=== PATIENT | male | born 1975 | race Caucasian/White ===

== ENCOUNTER 2019-12-04 11:16 | Emergency (ER) | payer BC, OTHER ==
[~2019-12-04] VITALS: Ht 165.1 cm; Wt 77.1 kg
[2019-12-04 11:40] LABS: BASOPHILS % (AUTO) 0 % (0-10); EOSINOPHILS # (AUTO) 0.2 10^3/uL (0.0-0.3); EOSINOPHILS % (AUTO) 3 % (0-10); HEMATOCRIT 45 % (40-54); HEMOGLOBIN 15.9 G/DL (13.3-17.7); LYMPHOCYTES # (AUTO) 1.7 X 10^3 (1.0-4.0); LYMPHOCYTES % (AUTO) 34 % (12-44); MEAN CORPUSCULAR HEMOGLOBIN 30 PG (25-34); MEAN CORPUSCULAR HGB CONC 35 G/DL (32-36); MEAN CORPUSCULAR VOLUME 85 FL (80-99); MONOCYTES # (AUTO) 0.5 X 10^3 (0.0-1.0); MONOCYTES % (AUTO) 9 % (0-12); NEUTROPHILS # (AUTO) 2.8 X 10^3 (1.8-7.8); NEUTROPHILS % (AUTO) 54 % (42-75); PLATELET COUNT 263 10^3/uL (130-400); RED CELL DISTRIBUTION WIDTH 13.4 % (10.0-14.5); WHITE BLOOD COUNT 5.2 10^3/uL (4.3-11.0)
[2019-12-04] MEDS ORDERED: ASPIRIN 81 MG CHEW (CHILDREN'S ASA) PO ONE (11:45)
--- NOTE | 2019-12-04 11:56 | Diagnostic Imaging Report ---
INDICATION: Chest pain COMPARISON: None FINDINGS: Single frontal view of the chest demonstrates normal heart size and pulmonary vascularity. The lungs are well aerated and clear. No large pleural effusion or pneumothorax is seen. The visualized osseous structures show no acute abnormalities. IMPRESSION: 1. No acute cardiopulmonary process. Dictated by: Dictated on workstation # [id number]
[2019-12-04 12:02] LABS: PROTHROMBIN TIME PATIENT 13.6 SEC (12.2-14.7)
--- NOTE | 2019-12-04 12:08 | ED Chest Pain ---
General Chief Complaint: Chest Pain Stated Complaint: CHEST PAIN Nursing Triage Note: pt reports chest pain that started 15 days ago, went to [facility] for this with no solution. Pt states pain travels from chest to back of lungs. Pain started to get worse last night with a tingling sensation. Pt works at [employer], pain is worse when he worsk and drinks etoh. Nursing Sepsis Screen: No Definite Risk Source: patient Exam Limitations: language barrier (personnel security specialist line used medication) History of Present Illness Date Seen by Provider: Dec 04, 2019 Time Seen by Provider: 11:10 Initial Comments 44-year-old male who presents to emergency room with complaints of continued c hest pain that started 15 days ago. He reports being seen and evaluated at [facility] with no solution or improvement of symptoms. He reports that the pain travels from his chest into the back of his lungs. Pain is worse with deep breathing. Patient reports for the last 2 days the pain has become worse with tingling sensations throughout his chest wall. He is an employee of [employer] and has been screening for COVID several times with negative results. The patient reports that the pain is worse when he is working or when he drinks alcohol. He denies any shortness of breath, nausea, vomiting, dizziness, or any other COVID related symptoms. ASA po LANDS RESOURCE MANAGER: No NTG SL LANDS RESOURCE MANAGER: No Associated Symptoms: back pain Allergies and Home Medications Allergies Coded Allergies: No Known Drug Allergies (Unverified , 12/04/19) Patient Home Medication List Home Medication List Reviewed: Yes Review of Systems Review of Systems Constitutional: see HPI; No chills, No fever Cardiovascular: See HPI, Chest Pain Musculoskeletal: see HPI, back pain All Other Systems Reviewed Negative Unless Noted: Yes Past Kdcpduh-Jtfhat-Kypxfl Hx Past Med/Social Hx: Reviewed Nursing Past Med/Soc Hx Patient Social History Alcohol Use: Occasionally Uses Recreational Drug Use: No Smoking Status: Never a Smoker Recent Foreign Travel: No Contact w/Someone Who Travel: No Recent Infectious Disease Expo: No Recent Hopitalizations: No Seasonal Allergies Seasonal Allergies: No Past Medical History Surgeries: No Respiratory: No Cardiac: No Neurological: No Genitourinary: No Gastrointestinal: No Musculoskeletal: No Endocrine: No HEENT: No Cancer: No Psychosocial: No Integumentary: No Blood Disorders: No Family Medical History Reviewed Nursing Family Hx Physical Exam Vital Signs Vital Signs - First Documented 12/04/19 11:20 Temp 36.7 Pulse 78 Resp 14 B/P (MAP) 143/84 (103) O2 Delivery Room Air Capillary Refill : Less Than 3 Seconds Height, Weight, BMI Height: '" Weight: lbs. oz. kg; 28.00 BMI Method: General Appearance: No Apparent Distress, WD/WN Respiratory: Chest Non Tender, Lungs Clear, Normal Breath Sounds, No Accessory Muscle Use, No Respiratory Distress Cardiovascular: Regular Rate, Rhythm, No Edema, No Gallop, No JVD, No Murmur, Normal Peripheral Pulses Extremity: Normal Capillary Refill, No Calf Tenderness, No Pedal Edema Neurologic/Psychiatric: Alert, Oriented x3, Normal Mood/Affect Skin: Normal Color, Warm/Dry Progress/Results/Core Measures Results/Orders Lab Results Laboratory Tests Test 12/04/19 11:34 12/04/19 11:35 12/04/19 13:36 Range/Units White Blood Count 5.2 4.3-11.0 10^3/uL Red Blood Count 5.31 4.35-5.85 10^6/uL Hemoglobin 15.9 13.3-17.7 G/DL Hematocrit 45 40-54 % Mean Corpuscular Volume 85 80-99 FL Mean Corpuscular Hemoglobin 30 25-34 PG Mean Corpuscular Hemoglobin Concent 35 32-36 G/DL Red Cell Distribution Width 13.4 10.0-14.5 % Platelet Count 263 130-400 10^3/uL Mean Platelet Volume 9.0 7.4-10.4 FL Neutrophils (%) (Auto) 54 42-75 % Lymphocytes (%) (Auto) 34 12-44 % Monocytes (%) (Auto) 9 0-12 % Eosinophils (%) (Auto) 3 0-10 % Basophils (%) (Auto) 0 0-10 % Neutrophils # (Auto) 2.8 1.8-7.8 X 10^3 Lymphocytes # (Auto) 1.7 1.0-4.0 X 10^3 Monocytes # (Auto) 0.5 0.0-1.0 X 10^3 Eosinophils # (Auto) 0.2 0.0-0.3 10^3/uL Basophils # (Auto) 0.0 0.0-0.1 10^3/uL D-Dimer 0.27 0.00-0.49 UG/ML Sodium Level 139 135-145 MMOL/L Potassium Level 3.9 3.6-5.0 MMOL/L Chloride Level 105 98-107 MMOL/L Carbon Dioxide Level 25 21-32 MMOL/L Anion Gap 9 5-14 MMOL/L Blood Urea Nitrogen 12 7-18 MG/DL Creatinine 0.85 0.60-1.30 MG/DL Estimat Glomerular Filtration Rate > 60 BUN/Creatinine Ratio 14 Glucose Level 110 H 70-105 MG/DL Calcium Level 8.8 8.5-10.1 MG/DL Corrected Calcium 8.7 8.5-10.1 MG/DL Magnesium Level 1.9 1.6-2.4 MG/DL Total Bilirubin 0.6 0.1-1.0 MG/DL Aspartate Amino Transf (AST/SGOT) 28 5-34 U/L Alanine Aminotransferase (ALT/SGPT) 37 0-55 U/L Alkaline Phosphatase 97 40-136 U/L Myoglobin 36.9 10.0-92.0 NG/ML Troponin I < 0.028 < 0.028 <0.028 NG/ML Total Protein 7.2 6.4-8.2 GM/DL Albumin 4.1 3.2-4.5 GM/DL Prothrombin Time 13.6 12.2-14.7 SEC INR Comment 1.0 0.8-1.4 Activated Partial Thromboplast Time 31 24-35 SEC My Orders Orders - BERNOT,BENJY Cbc With Automated Diff (12/04/19 11:18) Magnesium (12/04/19 11:18) Chest 1 View, Ap/Pa Only (12/04/19 11:18) Ekg Tracing (12/04/19 11:18) Comprehensive Metabolic Panel (12/04/19 11:18) Myoglobin Serum (12/04/19 11:18) Protime With Inr (12/04/19 11:18) Partial Thromboplastin Time (12/04/19 11:18) O2 (12/04/19 11:18) Monitor-Rhythm Ecg Trace Only (12/04/19 11:18) Lipid Panel (12/05/19 06:00) Ed Iv/Invasive Line Start (12/04/19 11:18) Fibrin Degradation Products (12/04/19 11:18) Troponin I (12/04/19 11:18) Aspirin Chewable Tablet (Baby Aspirin Ch (12/04/19 11:45) Troponin I (12/04/19 13:27) Ekg Tracing (12/04/19 13:33) Medications Given in ED Current Medications Medications Dose Ordered Sig/Fidel Route Start Time Stop Time Status Last Admin Dose Admin Aspirin 324 mg ONCE ONCE PO 12/04/19 11:45 12/04/19 11:46 DC 12/04/19 11:49 324 MG Vital Signs/I&O 12/04/19 12/04/19 11:20 11:20 Temp 36.7 Pulse 78 Resp 14 B/P (MAP) 143/84 (103) O2 Delivery Room Air Blood Pressure Mean: 103 Progress Progress Note : Time: 14:20 Progress Note I have seen and evaluated the patient. I've informed him of his laboratory, EKG, imaging studies. He agrees with plan of care, plans for follow-up, return precautions were given. Initial ECG Impression Date: Dec 04, 2019 Initial ECG Impression Time: 11:28 Initial ECG Rate: 75 Initial ECG Rhythm: Normal Sinus Initial ECG Comparisson: No Previous ECG Available Comment EKG showed minimal ST elevation in leads V1 through V4. The EKG was sent to Dr. Helton for evaluation. EKG : EKG Time: 11:35 Rate: 64 Rhythm: Normal Sinus ECG Comparisson: Unchanged Comment Minimal ST elevation. No Change from previous. Diagnostic Imaging Diagonstic Imaging: Xray Plain Films/CT/US/NM/MRI: chest Comments [facility]. [place], [place] NAME: CURRY SMITH [facility] REC#: [id number] PT STATUS: REG ER : 1975 PHYSICIAN: BENJY GONZALEZ ADMIT DATE: 12/04/19/ER Draft Date of Exam:12/04/19 CHEST 1 VIEW, AP/PA ONLY INDICATION: Chest pain COMPARISON: None FINDINGS: Single frontal view of the chest demonstrates normal heart size and pulmonary vascularity. The lungs are well aerated and clear. No large pleural effusion or pneumothorax is seen. The visualized osseous structures show no acute abnormalities. IMPRESSION: 1. No acute cardiopulmonary process. Dictated on workstation # [id number] Dict: 12/04/19 1154 Trans: 12/04/19 1156 [facility] [id number] Interpreted by: ARMAND ARRIAZA MD Electronically signed by: Reviewed: Reviewed by Me Departure Impression Primary Impression: Pleuritic chest pain Disposition: 01 HOME, SELF-CARE Condition: Stable/Unchanged Departure-Patient Inst. Decision time for Depature: 14:21 Referrals: LATESHA DENT DO Patient Instructions: Pleuritic Chest Pain (DC) Add. Discharge Instructions: You may use ibuprofen and Tylenol as needed for pain relief. Call today to schedule follow-up appointment with your primary care provider at [facility]. Return back to the emergency room for worsening symptoms, chest pain, or concerns as needed. All discharge instructions reviewed with patient and/or family. Voiced understanding. BENJY GONZALEZ Dec 04, 2019 12:07
[2019-12-04 12:11] LABS: ALANINE AMINOTRANSFERASE 37 U/L (0-55); ALBUMIN 4.1 GM/DL (3.2-4.5); ALKALINE PHOSPHATASE 97 U/L (40-136); BILIRUBIN,TOTAL 0.6 MG/DL (0.1-1.0); BUN/CREATININE RATIO 14; CALCIUM 8.8 MG/DL (8.5-10.1); CARBON DIOXIDE 25 MMOL/L (21-32); CHLORIDE 105 MMOL/L (98-107); CREATININE SERUM 0.85 MG/DL (0.60-1.30); GFR ESTIMATED > 60; GLUCOSE 110 MG/DL (70-105); MAGNESIUM 1.9 MG/DL (1.6-2.4); POTASSIUM 3.9 MMOL/L (3.6-5.0); SODIUM 139 MMOL/L (135-145); TOTAL PROTEIN 7.2 GM/DL (6.4-8.2)
[2019-12-04] MEDS ORDERED: KETOROLAC 30 MG/ML VIAL IVP ONE (14:30)
[2019-12-04 15:02] VITALS: BP 123/81
== END 2019-12-04 15:02 | disposition home or self-care (01) ==
LOC: ER 11:19
DX: R07.81 Pleurodynia (principal); M54.9 Dorsalgia, unspecified
CPT/HCPCS: 36415; 71045; 80053; 83735; 83874; 84484; 85025; 85379; 85610; 85730; 93005; 93041